=== PATIENT | male | born 1975 | race Two or more races ===

== ENCOUNTER 2023-07-12 05:24 | Day surgery (SDC) | payer OTHER ==
[2023-07-06 14:43] LABS: BASOPHILS % (AUTO) 0.4 % (0-1); EOSINOPHILS % (AUTO) 0.9 % (0-6); LYMPHOCYTES # (AUTO) 1.8 X10'3 (1.1-4.8); LYMPHOCYTES % (AUTO) 33.9 % (21-51); MEAN CORPUSCULAR HGB CONC 34.3 g/dL (33.0-36.5); MEAN CORPUSCULAR VOLUME 90.3 FL (78-98); MEAN PLATELET VOLUME 7.3 FL (7.4-10.4); MONOCYTES # (AUTO) 0.4 X10'3 (0-0.9); MONOCYTES % (AUTO) 8.1 % (2-12); NEUTROPHILS % (AUTO) 56.7 % (42-75); PRE OP HEMATOCRIT 42.1 % (42.0-52.0); PRE OP HEMOGLOBIN 14.5 g/dL (14.0-17.9); PRE OP PLATELET COUNT 181 X10'3 (140-440); PRE OP WHITE BLOOD COUNT 5.4 10'3 (4.8-10.8); RED BLOOD COUNT 4.67 X10'6 (4.70-6.10)
[2023-07-06 15:04] LABS: ALBUMIN 3.7 G/DL (3.4-5.0); ALBUMIN/GLOBULIN RATIO 1.2 (1.1-1.5); ALKALINE PHOSPHATASE 61 IU/L (46-116); BLOOD UREA NITROGEN 14 MG/DL (7-18); BUN/CREATININE RATIO 14.9 (10.0-20.0); CALCIUM 8.6 MG/DL (8.5-10.1); CHLORIDE 105 MMOL/L (99-107); CREATININE 0.94 MG/DL (0.60-1.10); PRE OP ALT 34 U/L (30-65); PRE OP ANION GAP 5 (8-16); PRE OP AST 16 U/L (10-37); PRE OP BILIRUB, TOTAL 0.6 MG/DL (0.0-1.0); PRE OP GLUCOSE 85 MG/DL (70-104); PRE OP POTASSIUM 4.2 MMOL/L (3.4-5.1); PRE OP SODIUM 140 MMOL/L (135-145); TOTAL CARBON DIOXIDE 30.3 MMOL/L (24-32); TOTAL PROTEIN 6.7 G/DL (6.4-8.2); eGFR 86 ML/MIN
[2023-07-12] VITALS (14 sets, daily range): BP systolic 98–135; BP diastolic 58–93; PULSE 62–120; RESP 12–20; TEMP 97.6; O2SAT 96–99
[~2023-07-12] VITALS: Ht 167.6 cm; Wt 79.3 kg
[~2023-07-12 05:24] MED LIST: ACET-2119 PO; HYDR-3972 PO; MULT-955 PO; OMEG1CAP61 PO; TRAM50TA2 PO; ringers solution, lacted 1,000 ML IV SCH
[2023-07-12] MEDS ORDERED: famotidine 20mg tablet PO ONE (05:30)
[2023-07-12] MEDS ORDERED: cefazolin 2gm/D5W 100mL 100 ML IV ONE (05:30)
[2023-07-12] MEDS ORDERED: BUPIVAcaine/PF 2.5mg/ml (0.25%) 10ml vial ONE (06:40)
[2023-07-12] MEDS ORDERED: LIDOcaine 1% 30ml preserv. free vial ONE (06:40)
[2023-07-12] MEDS ORDERED: fentaNYL/PF 50MCG/1 ML 2ML syringe ONE (07:15)
[2023-07-12] MEDS ORDERED: midazolam 1 mg/ML 2ml injection ONE (07:16)
[2023-07-12] MEDS ORDERED: rocuronium 10mg/ml inj IV ONE (07:18)
[2023-07-12] MEDS ORDERED: LIDOcaine 2% (20mg/ml) 5ml vial ONE (07:18)
[2023-07-12] MEDS ORDERED: propofol inj 20 ML IV ONE (07:18)
[2023-07-12] MEDS ORDERED: dexamethasone sod phosphate 4mg/ml inj. ONE (07:19)
[2023-07-12] MEDS ORDERED: neostigmine methylsulfate 1 MG/ML 10ml vial ONE (07:19)
[2023-07-12] MEDS ORDERED: ondansetron/PF 4mg/2ml inj ONE (07:19)
[2023-07-12] MEDS ORDERED: glycopyrrolate 0.2mg/ml inj ONE (07:19)
[2023-07-12] MEDS ORDERED: morphine 4 MG/ML inj SYRINge IV PRN (07:25)
[2023-07-12] MEDS ORDERED: ondansetron/PF 4mg/2ml inj IV PRN (07:25)
[2023-07-12] MEDS ORDERED: hydrALAZINE 20mg/ml inj. IV PRN (07:25)
[2023-07-12] MEDS ORDERED: ringers solution, lacted 1,000 ML IV SCH (07:25)
[2023-07-12] MEDS ORDERED: HYDROmorphone/PF 0.2 MG/ML SYRINGE IV PRN ×2 (07:25)
[2023-07-12] MEDS ORDERED: morphine 2 MG/ML inj. syringe IV PRN (07:25)
[2023-07-12] MEDS ORDERED: labetalol 20mg/4ml (5mg/ml) syringe IV PRN (07:25)
[2023-07-12] MEDS ORDERED: sevoflurane 250ml liquid IH ONE (07:35)
[2023-07-12] MEDS ORDERED: acetaminophen 1,000mg/100ml IV 100 ML IV ONE (07:54)
[2023-07-12] MEDS ORDERED: hydrALAZINE 20mg/ml inj. IV ONE (08:18)
--- NOTE | 2023-07-12 08:52 | NUR ---
Received from OR via rome, accompanied by Anesthesiologist and report given by ROSSANA Anesthesiologist. PATIENT WAKING UP, NO S/S OF PAIN, V/S WNL, SCD ON , PIV 20G LEFT HAND, BANDAIDS LAPS SITES CLOSED C/D/I TO ABDOMEN. Addendum: 07/12/23 at 0910 by Juan Arthur RN Amended: Links added.
[2023-07-12] MEDS ORDERED: HYDROcodone/acetaminophen 5mg/325mg tablet PO PRN (09:00)
--- NOTE | 2023-07-12 10:00 | NUR ---
PERFORMED URINARY BLADDER SCANNING AND 487 CC OF URINE NOTED. PATIENT TOLERATED PROCEDURE WELL. WILL KEEP MONITORING.
--- NOTE | 2023-07-12 10:40 | NUR ---
PULLED BILATERAL NASAL COTTONOID DRESSING. NO S/S OF BLEEDING AT THIS TIME. APPLIED GAUZE AND NASAL DRAINAGE DRESSING. PATIENT TOLERATED IT WELL. Addendum: 07/12/23 at 1049 by Juan Arthur RN Amended: Links added. Addendum: 07/12/23 at 1050 by Juan Arthur RN DELETED PREVIOUS ENTRY.
[2023-07-12] MEDS ORDERED: LidoCAINE 2% Topical Jelly 11mL syringe TOP ONE (11:05)
--- NOTE | 2023-07-12 11:20 | NUR ---
INSERTED BROOKS CATHETER VIA STERILE WAY WITH LIDOCAINE. PATIENT TOLERATED PROCEDURE WELL. NO S/S OF DISTRESS OR DISCOMFORT AT THIS TIME. WILL KEEP MONITORING. Addendum: 07/12/23 at 1133 by Juan Arthur RN Amended: Links added.
--- NOTE | 2023-07-12 11:52 | NUR ---
F/C PLACED PER PROTOCOL WITH NO COMPLICATIONS DUE TO PATIENT BEING UNABLE TO VOID AND OVER 400CC IN BLADDER SCAN. GOOD OUTPUT OF URINE FROM F/C WITH CLEAR YELLOW URINE. I HAVE DEMONSTRATED F/C CARE AND PATIENT HAS VERBALIZED UNDERSTANDING ON HOME CARE. EDUCATION PACKET GIVEN TO PATIENT WELL FOR F/C MANAGEMENT FOR HOME. PATIENT AGREES HE WILL CALL DR VALDES OFFICE IN AM FOR F/C D/C APPT IN OFFICE. Addendum: 07/12/23 at 1203 by Juan Arthur RN Amended: Links added.
== END 2023-07-12 11:52 | disposition home or self-care (01) ==
LOC: PAS 05:24
PROVIDERS: ATTEND Surgery
DX: K40.90 Unilateral inguinal hernia, without obstruction or gangrene, not specified as recurrent (principal); Z79.899 Other long term (current) drug therapy; Z98.890 Other specified postprocedural states; Z98.52 Vasectomy status
CPT/HCPCS: 36415; 49650; 80053; 82948; 85025; 93005; C1781; J0131; J0360; J0690; J1100; J1170; J2250; J2270; J2405; J2704; J2710; J3010; J3490; J7030; J7120; S2900; Z7506; Z7508; Z7512; A4215; A4618; C1758